=== PATIENT | male | born 1950 | race American Indian/Alaskan Native ===

== ENCOUNTER 2017-11-06 07:45 | Day surgery (SDC) | payer MEDICARE ==
[2017-11-06 09:44] VITALS: BMI 23.2
[2017-11-06] MEDS ORDERED: Lactated Ringer's 500 ML IV ONE (09:55)
--- NOTE | 2017-11-06 09:57 | CP.SDSHP ---
Same Day Surgery H & P - History Proposed Procedure: colonoscopy Pre-Op Diagnosis: screen - Previous Medical/Surgical History Cardiac: Hypertension Comments: CVA - Allergies Allergies: Allergies No Known Allergies Allergy (Verified 08/23/16 18:25) - Physical Exam Vital Signs: Vital Signs 11/06/17 09:28 Temperature 97 F L Pulse Rate 80 Respiratory 20 Rate Blood Pressure 133/75 O2 Sat by Pulse 98 Oximetry Mental Status: Alert & Oriented x3 Neuro: WNL Heart: WNL Lungs: WNL GI: WNL - {Optional Preform as Required} Abdomen: WNL - Impression Impression: screen Pt. Evaluated Today:Candidate for Anesthesia & Procedure: Yes - Date & Time Date: 11/06/17 Time: 09:45 Short Stay Discharge - Short Stay Discharge Admitting Diagnosis/Reason for Visit: SCREENING Disposition: HOME/ ROUTINE
[2017-11-06] MEDS ORDERED: Propofol 10 mg/ml Inj (20 ML) ONE (10:03)
[2017-11-06 10:44] VITALS: TEMP 97.8
[2017-11-06 11:13] VITALS: O2SAT 100
[2017-11-06 11:45] VITALS: BP 109/78; PULSE 56; RESP 12
== END 2017-11-06 11:35 | disposition home or self-care (01) ==
LOC: C.ENDO 07:45
PROVIDERS: ATTEND Internal Medicine Gastroenterology
DX: D12.5 Benign neoplasm of sigmoid colon (principal); K64.8 Other hemorrhoids
CPT/HCPCS: 45388; 88305; J2704; J7120